=== PATIENT | male | born 1945 | race Caucasian/White ===

== ENCOUNTER 2023-05-28 11:18 | Emergency (ER) | payer OTHER ==
--- OUTSIDE RECORDS SUMMARY | 2023-05-28 11:22 | XMS REPORT | Continuity of Care Document ---
:1945 Author Organization [facility] t Address [address] [place] [address] [place] [id number] Care Team Providers Name Role Phone SHERYL IVTE TAYLOR Primary Care Physician Unavailable Pob, Adc Lab Main Attending Clinician Unavailable Susi Chávez MD Attending Clinician SUSI CHÁVEZ Attending Clinician Unavailable Doctor Unassigned, [place] Attending Clinician Unavailable BRAULIO CIFUENTES Attending Clinician Unavailable Braulio Cifuentes MD Attending Clinician Van_T Attending Clinician Unavailable Frandy Cunningham Attending Clinician [phone] Van_T Admitting Clinician Unavailable Payers Payer Name Policy Type Policy Number Effective Date Expiration Date S [facility] [id number] (MEDICARE REPLACEMENT/ADVANTAGE - PPO) Problems Condition Condition Condition Status Onset Resolution Last Treating Co mments Source Name Details Category Date Date Treatment Clinician Date No known No known Disease Unive rs active active ity of problems problems [facility] Allergies, Adverse Reactions, Alerts Allergy Allergy Status Severity Reaction(s) Onset Inactive Treating Comm ents Source Name Type Date Date Clinician No Known DA Active [facility] Allergie 04-27 [place] s 00:00: [facility] NO KNOWN Drug Active Univers ALLERGIE Class ity of S [place] [facility] [place] Social History Social Habit Start Date Stop Date Quantity Comments Source Exposure to Not sure [facility] SARS-CoV-2 (event) Medica l Branch Alcohol intake 2015-08-27 2015-08-27 0 /d [facility] 00:00:00 00:00:00 Medical Branch [facility] At [birth year] [facility] [place] [facility] 00:00:00 Medical Branch Smoking Status Start Date Stop Date Source Never Smoker [place] [facility] Ordered Filled Start Stop Current Ordering Indication Dosage Frequency Signature Comments Components Source Medication Medication Date Date Medication? Clinician (SIG) Name Name triamcinolo 2021- No [id number] 40mg [facility] 12-12 9102 ity of acetonide 16:45: 15:35 [place] (KENALOG) 00 :00 Medical injection Branch 40 mg triamcinolo 2021- No [id number] 40mg 40 mg, [facility] 12-12 9102 Intramuscu ity of acetonide 16:45: 15:35 [place], ONCE, [place] (KENALOG) 00 :00 1 dose, On Medi festus injection 12/12/21 Bran ch 40 mg at 1145, Routine ZOLPIDEM 2014-09 Yes 10mg Take 10 mg Uni vers TARTRATE 2-14 by mouth ity of (ZOLPIDEM 21:53: [place] needed. [place] [address] [place] [address] traZODONE 2014-09 Yes 50mg Take 50 mg Un dima (DESYREL) 2-14 by mouth. ity o f 50 mg 21:53: [place] tablet [address] [place] [address] Branch butalbital- 2014-09 Yes 1{capsu Take 1 Cap Univers aspirin-caf 2-14 le} by mouth. ity of feine 21:53: Indication [place] (FIORINAL) s: pt Medical 50-325-40 stated Branch mg per that he capsule alternates this med and fioricet butalbital- 2014-09 Yes 1{tbl} Take 1 Tab Univers acetaminoph 2-14 by mouth. ity of en-caff 21:53: [place] (FIORICET) Medical 50-325-40 Branch mg tablet ZOLPIDEM 2014-09 Yes 10mg Take 10 mg Uni vers TARTRATE 2-14 by mouth ity of (ZOLPIDEM 21:53: [place]. [place] [address] [place] [address] traZODONE 2014-09 Yes 50mg Take 50 mg Un dima (DESYREL) 2-14 by mouth. ity o f 50 mg 21:53: [place] tablet 08 [facility] butalbital- 2014-09 Yes 1{capsu Take 1 Cap Univers aspirin-caf 2-14 le} by mouth. ity of feine 21:53: Indication [place] (FIORINAL) 08 s: pt Medical 50-325-40 stated Branch mg per that he capsule alternates this med and fioricet butalbital- 2014-09 Yes 1{tbl} Take 1 Tab Univers acetaminoph 2-14 by mouth. ity of en-caff 21:53: [place] (FIORICET) [address] [place] [address] 50-325-40 Branch mg tablet ZOLPIDEM 2014-09 Yes 10mg Take 10 mg Uni vers TARTRATE 2-14 by mouth ity of (ZOLPIDEM 21:53: [place]. [place] [address] [place] [address] traZODONE 2014-09 Yes 50mg Take 50 mg Un dima (DESYREL) 2-14 by mouth. ity o f 50 mg 21:53: [place] tablet [address] [place] [address] butalbital- 2014-09 Yes 1{capsu Take 1 Cap Univers aspirin-caf 2-14 le} by mouth. ity of feine 21:53: Indication [place] (FIORINAL) 08 s: pt Medical 50-325-40 stated Branch mg per that he capsule alternates this med and fioricet butalbital- 2014-09 Yes 1{tbl} Take 1 Tab Univers acetaminoph 2-14 by mouth. ity of en-caff 21:53: [place] (FIORICET) Medical 50-325-40 Branch mg tablet TAMSULOSIN 2014-09 Yes .4mg Take 0.4 Uni vers HCL 2-14 mg by ity of (TAMSULOSIN 21:53: [place] [address] [place] [address] liothyronin 2014-09 Yes 5ug Take 5 mcg Univers e (CYTOMEL) 2-14 by mouth ity of 5 mcg 21:53: daily. [place] tablet [address] [place] [address] Levothyroxi 2014-09 Yes Take by Uni vers ne 2-14 mouth. ity of (TIROSINT) 21:53: [address] atenolol 2014-09 Yes 25mg Take 25 mg Uni vers (TENORMIN) 2-14 by mouth ity o f 25 mg 21:53: daily. [address] venlafaxine 2014-09 Yes 150mg Take 150 U nivers XR (EFFEXOR 2-14 mg by ity of XR) 150 mg 21:53: mouth [place] 24 hr 07 daily with Medical capsule breakfast. Branch TAMSULOSIN 2014-09 Yes .4mg Take 0.4 Uni vers HCL 2-14 mg by ity of (TAMSULOSIN 21:53: [place]. [place] [address] [place] [address] liothyronin 2014-09 Yes 5ug Take 5 mcg Univers e (CYTOMEL) 2-14 by mouth ity of 5 mcg 21:53: daily. [address] Levothyroxi 2014-09 Yes Take by Uni vers ne 2-14 mouth. ity of (TIROSINT) 21:53: [address] atenolol 2014-09 Yes 25mg Take 25 mg Uni vers (TENORMIN) 2-14 by mouth ity o f 25 mg 21:53: daily. [address] venlafaxine 2014-09 Yes 150mg Take 150 U nivers XR (EFFEXOR 2-14 mg by ity of XR) 150 mg 21:53: mouth [place] 24 hr 07 daily with Medical capsule breakfast. Branch TAMSULOSIN 2014-09 Yes .4mg Take 0.4 Uni vers HCL 2-14 mg by ity of (TAMSULOSIN 21:53: [place]. [place] [address] [place] [address] liothyronin 2014-09 Yes 5ug Take 5 mcg Univers e (CYTOMEL) 2-14 by mouth ity of 5 mcg 21:53: daily. [address] Levothyroxi 2014-09 Yes Take by Uni vers ne 2-14 mouth. ity of (TIROSINT) 21:53: [address] atenolol 2014-09 Yes 25mg Take 25 mg Uni vers (TENORMIN) 2-14 by mouth ity o f 25 mg 21:53: daily. [address] venlafaxine 2015-1 Yes 150mg Take 150 U nivers XR (EFFEXOR 2-14 mg by ity of XR) 150 mg 21:53: mouth [place] 24 hr 07 daily with Medical capsule breakfast. Branch traMADOL 2014-09 Yes 50mg Take 1 Tab Uni vers (ULTRAM) 50 2-14 by mouth ity of mg tablet 00:00: every 6 [place] 00 (six) Medical hours as Branch needed for Pain (scale 1-3). acetaminoph 2014-09 Yes 1{tbl} Take 1 Tab Univers en-codeine 2-14 by mouth ity o f (TYLENOL 00:00: every 4 [place] #3) 300-30 00 (four) Medical mg tablet hours as Branch needed for Pain (scale 1-3). traMADOL 2014-09 Yes 50mg Take 1 Tab Uni vers (ULTRAM) 50 2-14 by mouth ity of mg tablet 00:00: every 6 [place] 00 (six) Medical hours as Branch needed for Pain (scale 1-3). acetaminoph 2014-09 Yes 1{tbl} Take 1 Tab Univers en-codeine 2-14 by mouth ity o f (TYLENOL 00:00: every 4 [place] #3) 300-30 00 (four) Medical mg tablet hours as Branch needed for Pain (scale 1-3). traMADOL 2014-09 Yes 50mg Take 1 Tab Uni vers (ULTRAM) 50 2-14 by mouth ity of mg tablet 00:00: every 6 [place] 00 (six) Medical hours as Branch needed for Pain (scale 1-3). acetaminoph 2014-09 Yes 1{tbl} Take 1 Tab Univers en-codeine 2-14 by mouth ity o f (TYLENOL 00:00: every 4 [place] #3) 300-30 00 (four) Medical mg tablet hours as Branch needed for Pain (scale 1-3). doxycycline 2014- Yes 100mg Take 1 Cap Univers (VIBRAMYCIN 9-29 by mouth 2 it y of ) 100 mg 00:00: (two) [place] capsule 00 times Medical daily. Branch doxycycline 2015-0 Yes 100mg Take 1 Cap Univers (VIBRAMYCIN 9-29 by mouth 2 it y of ) 100 mg 00:00: (two) [place] capsule 00 times Medical daily. Branch doxycycline 2014-0 Yes 100mg Take 1 Cap Univers (VIBRAMYCIN 9-29 by mouth 2 it y of ) 100 mg 00:00: (two) [place] capsule 00 times Medical daily. Branch zolpidem ER zolpidem ER No zolpidem [place] 12.5 mg 12.5 mg ER 12.5 mg Met ro tablet,exte tablet,exte tablet,ext Urology nded nded ended release,mul release,mul release,mu tiphase tiphase ltiphase amitriptyli amitriptyli No amitriptyl [place] ne 10 mg ne 10 mg ine 10 mg Me tro tablet tablet tablet Urology atenolol 50 atenolol 50 No atenolol [place] mg tablet mg tablet 50 mg Metr o tablet Urology butalbital- butalbital- No butalbital [place] acetaminoph acetaminoph -acetamino [place] en-caffeine en-caffeine phen-caffe Urology 50 mg-325 50 mg-325 ine 50 mg-40 mg mg-40 mg mg-325 tablet tablet mg-40 mg tablet butalbital- [facility]albital- [facility] [place] aspirin-caf aspirin-caf -aspirin-c [facility] feine 50 feine 50 affeine 50 U rology mg-325 mg-325 mg-325 mg-40 mg mg-40 mg mg-40 mg capsule capsule capsule cephalexin cephalexin No cephalexin [place] 500 mg 500 mg 500 mg [facility] capsule capsule capsule Urolog y Take 1 Take 1 Take 1 capsule capsule capsule every 8 every 8 every 8 hours by hours by hours by oral route oral route oral route for 1 day. for 1 day. for 1 day. ciprofloxac ciprofloxac No ciprofloxa [place] in 500 mg in 500 mg shanelle 500 mg [facility] tablet Take tablet Take tablet Urology 1 tablet 1 tablet Take 1 twice a day twice a day tablet by oral by oral twice a route for 5 route for 5 day by days. days. oral route for 5 days. fentanyl 75 fentanyl 75 No fentanyl [place] mcg/hr mcg/hr 75 mcg/hr [place] transdermal transdermal transderma Urology patch patch l patch levofloxaci levofloxaci No levofloxac [place] n 750 mg n 750 mg in 750 mg Me tro tablet tablet tablet Urology levothyroxi levothyroxi No levothyrox [place] ne 112 mcg ne 112 mcg ine 112 [facility] tablet tablet mcg tablet Urolo gy liothyronin liothyronin No liothyroni [place] e 5 mcg e 5 mcg ne 5 mcg [facility] tablet tablet tablet Urology losartan losartan No losartan Fredy ston 100 mg 100 mg 100 mg [facility] tablet tablet tablet Urology losartan 50 losartan 50 No losartan [place] mg tablet mg tablet 50 mg Metr o tablet Urology mirtazapine mirtazapine No mirtazapin [place] 7.5 mg 7.5 mg e 7.5 mg Metro tablet tablet tablet Urology Suprep Suprep No Suprep [place] Bowel Prep Bowel Prep Bowel Prep [facility] Kit 17.5 Kit 17.5 Kit 17.5 Uro logy gram-3.13 gram-3.13 gram-3.13 gram-1.6 gram-1.6 gram-1.6 gram oral gram oral gram oral solution solution solution tizanidine tizanidine No tizanidine [place] 4 mg tablet 4 mg tablet 4 mg M etro tablet Urology venlafaxine venlafaxine No venlafaxin [place] ER 225 mg ER 225 mg e ER 225 M etro tablet,exte tablet,exte mg U rology nded nded tablet,ext release 24 release 24 ended hr hr release 24 hr zolpidem ER zolpidem ER No zolpidem [place] 12.5 mg 12.5 mg ER 12.5 mg Met ro tablet,exte tablet,exte tablet,ext Urology nded nded ended release,mul release,mul release,mu tiphase tiphase ltiphase amitriptyli amitriptyli No amitriptyl [place] ne 10 mg ne 10 mg ine 10 mg Me tro tablet tablet tablet Urology atenolol 50 atenolol 50 No atenolol [place] mg tablet mg tablet 50 mg Metr o tablet Urology butalbital- butalbital- No butalbital [place] acetaminoph acetaminoph -acetamino [place] en-caffeine en-caffeine phen-caffe Urology 50 mg-325 50 mg-325 ine 50 mg-40 mg mg-40 mg mg-325 tablet tablet mg-40 mg tablet butalbital- butalbital- No butalbital [place] aspirin-caf aspirin-caf -aspirin-c [facility] feine 50 feine 50 affeine 50 U rology mg-325 mg-325 mg-325 mg-40 mg mg-40 mg mg-40 mg capsule capsule capsule cephalexin cephalexin No 1capsul Q8H cephalexin [place] 500 mg 500 mg e(s) 500 mg [facility] capsule capsule capsule Urolog y Take 1 Take 1 Take 1 capsule capsule capsule every 8 every 8 every 8 hours by hours by hours by oral route oral route oral route for 1 day. for 1 day. for 1 day. Cipro 500 Cipro 500 No 1 BID Cipro 500 [place] mg tablet mg tablet mg tablet [facility] Take 1 Take 1 Take 1 Urology tablet tablet tablet twice a day twice a day twice a by oral by oral day by route for 5 route for 5 oral route days. days. for 5 days. fentanyl 75 fentanyl 75 No fentanyl [place] mcg/hr mcg/hr 75 mcg/hr [place] transdermal transdermal transderma Urology patch patch l patch levofloxaci levofloxaci No levofloxac [place] n 750 mg n 750 mg in 750 mg Me tro tablet tablet tablet Urology levothyroxi levothyroxi No levothyrox [place] ne 112 mcg ne 112 mcg ine 112 [facility] tablet tablet mcg tablet Urolo gy liothyronin liothyronin No liothyroni [place] e 5 mcg e 5 mcg ne 5 mcg [facility] tablet tablet tablet Urology losartan losartan No losartan Freyd ston 100 mg 100 mg 100 mg [facility] tablet tablet tablet Urology losartan 50 losartan 50 No losartan [place] mg tablet mg tablet 50 mg Metr o tablet Urology mirtazapine mirtazapine No mirtazapin [place] 7.5 mg 7.5 mg e 7.5 mg [facility] tablet tablet tablet Urology Suprep Suprep No Suprep [place] Bowel Prep Bowel Prep Bowel Prep [place] Kit 17.5 Kit 17.5 Kit 17.5 Uro logy gram-3.13 gram-3.13 gram-3.13 gram-1.6 gram-1.6 gram-1.6 gram oral gram oral gram oral solution solution solution tizanidine tizanidine No tizanidine [place] 4 mg tablet 4 mg tablet 4 mg M etro tablet Urology venlafaxine venlafaxine No venlafaxin [place] ER 225 mg ER 225 mg e ER 225 M etro tablet,exte tablet,exte mg U rology nded nded tablet,ext release 24 release 24 ended hr hr release 24 hr Vital Signs Vital Name Observation Time Observation Value Comments Source Systolic blood 2021-12-12 15:08:00 92 mm[Hg] Univer sity [facility] pressure [facility] Diastolic blood 2021-12-12 15:08:00 58 mm[Hg] [facility] Heart rate 2021-12-12 15:08:00 72 /min [facility] Body height 2021-12-12 15:08:00 177.8 cm [facility] Body weight 2021-12-12 15:08:00 68.493 kg [facility] BMI 2021-12-12 15:08:00 21.67 kg/m2 [facility] Oxygen saturation 2021-12-12 15:08:00 100 /min [facility] in Arterial blood [facility] Br anch by Pulse oximetry Height 2021-11-17 00:00:00 69 [in_i] [place] [facility] BP Diastolic 2021-10-30 00:00:00 75 mm[Hg] [facility] Height 2021-10-30 00:00:00 69 [in_i] [facility] BMI (Body Mass 2021-10-30 00:00:00 22.2 kg/m2 [place] [facility] Index) Urology BP Systolic 2021-10-30 00:00:00 111 mm[Hg] [facility] Body Weight 2021-10-30 00:00:00 150 [lb_av] [facility] Procedures Procedure Date / Time Performed Performing Clinician Sour e ASSIGNMENT OF BENEFITS 2022-08-04 20:53:57 Doctor Unassigned, No [facility] Encounters Start End Encounter Admission Attending Care Care Encounter Source Date/Time Date/Time Type Type Clinicians Facility Department ID 2022-08-04 2022-08-04 Literacy Specialist Eloisa Powell Lab Main [facility] 1.2.8 [id number] [facility] 15:15:00 15:30:00 Visit Susi Chávez 350.1.13.10 Noemi 4.2.7.2.686 Jose ARAUJO [id number] Hi dical [address] BUILDING 2022-08-04 2022-08-04 Outpatient R KYLER [facility] [id number] Univers 15:15:00 15:15:00 SUSI itishan [facility] 2022-08-04 2022-08-04 Orders Doctor JACKSON [id number] Univers 00:00:00 00:00:00 Only Unassigned, LEONARDA 350.1.13.10 ity of [place] [facility] 4.2.7.2.686 Luís as [id number] [address] 2021-12-12 2021-12-12 Outpatient Miriam CIFUENTES [facility] [id number] Univers 09:45:00 10:46:23 BRAULIO angelicaishan [facility] 2021-12-12 2021-12-12 Office Lex [facility] [id number] Univers 09:45:00 10:46:23 Visit [facility] 350.1.13.10 it y of [place] 4.2.7.2.686 Luís as KIM?BLEA [id number] [address] MEDICAL OFFICE [facility] 2021-12-12 2021-12-12 Orders Doctor JACKSON [id number] Univers 00:00:00 00:00:00 Only Unassigned, LEONARDA 350.1.13.10 ity of [place] [facility] 4.2.7.2.686 Luís as [id number] [address] 2021-11-24 2021-11-24 [address] Van_T [facility] [id number] [place] 08:54:00 08:54:00 [id number] [facility] 2021-11-19 2021-11-19 Outpatient Van_T U [facility] [id number] [place] 10:22:00 10:22:00 [id number] [facility] 2021-11-17 2021-11-17 Outpatient Van_T [facility] [id number] [place] 01:40:00 01:40:00 [id number] [facility] 2021-11-17 2021-11-[address] [facility] [id number] 00:00:00 00:00:00 Jackson Fitzpatrick [id number] 2021-11-17 2021-11-17 Frandy Sepulveda [facility] [place] - [id number] [place] 00:00:00 00:00:00 Amari Cunningham MD: [place] [facility] [address] [facility] [place], Urology JEWEL [place], - [facility] [address] , Ph. 2021-11-13 2021-11-13 Outpatient Van_T [facility] [id number] [place] 09:28:00 09:28:00 [facility] 2021-11-12 2021-11-12 Outpatient Van_T [facility] [id number] [place] 12:09:00 12:09:00 [facility] 2021-11-05 2021-11-05 Outpatient Van_T [facility] [id number] [place] 09:57:00 09:57:00 [facility] 2021-11-04 2021-11-04 Outpatient Van_T [facility] [id number] [place] 02:33:00 02:33:00 [facility] 2021-10-30 2021-10-30 Outpatient Van_T [facility] [id number] [place] 02:18:00 02:18:00 [facility] 2021-10-30 2021-10-[address] [facility] [id number] 00:00:00 00:00:00 Jackson Fitzpatrick [id number] 2021-10-30 2021-10-30 Frandy Sepulveda [facility] [place] - [id number] [address] [place] [id number] 00:00:00 00:00:00 Amari Cunningham MD: [facility] [address] [facility] [facility] JEWEL [place]ch, [place] [address] , Ph. 2021-09-25 2021-09-25 Outpatient Van_T [facility] [id number]- [place] 04:39:00 04:39:00 [facility] Results Test Description Test Time Test Comments Results Result Sour e Comments - CT C-SPINE W/O 2019-03-16 Patient Name: CONT 08:17:00 BRIDGERROGER Unit No: [id number] EXAMS: CPT CODE: [id number] CT C-SPINE W/O CONT 14207 DIAGNOSIS: 1. At C1-2 there is no evidence for subluxation or canal stenosis. There is degenerative narrowing of the anterior articulation with sclerosis and osteophyte formation. 2. At C2-3 there is endplate spur formation lateralizing left posterior lateral and foraminal with moderate to marked left foraminal narrowing without right-sided stenosis. Associated disc bulging is present. Facet degeneration is seen. No canal stenosis is identified. 3. 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 No canal stenosis is seen. 4. At C4-5 there is endplate spur formation with marked bilateral foraminal narrowing. Associated disc bulging is seen. The canal is stenotic with an AP diameter of 9 mm. Bilateral facet degeneration is present. 5. At C5-6 there is a mild retrolisthesis with endplate spur formation and associated disc bulging. Mild bilateral foraminal narrowing is present in the canal is stenotic with an AP diameter of 10 mm. 6. At C6-7 the patient is status post anterior discectomy and graft with anterior and interfacet solid fusion. Moderate to marked bilateral foraminal narrowing is present. No canal stenosis is seen. 7. At C7-T1 there is mild endplate spur formation and disc bulging with mild/moderate right foraminal narrowing and moderate left-sided stenosis. There is no evidence for canal stenosis. COMMENT: COMPARISON: No prior exams available. Scans were performed from C1 to T1 without contrast and reconstructions were obtained. Postsurgical and spondylitic changes are as noted. Discs are as described. at 0817 Reported and signed by: Rob Negron MD CC: Rob Flores M.D. Technologist: RT Marissa(R) CTDI: DLP: Trnscrpt: 03/16/2019 (0817) Hal [facility] NAME: ROGER SPARKS [address] [facility] PHYS: Rob Ayoub MD : 1945 AGE: 73 SEX: M [place], [place] [address] LOC: [place] PHONE #: [phone] EXAM DATE: 03/15/2019 STATUS: DEP CLI FAX #: [phone] RAD #: D/C DT PAGE 1 Signed Report Patient Name: ROGER SPARKS Unit No: [id number] EXAMS: CPT CODE: [id number] CT C-SPINE W/O CONT 99620 (Continued) Orig Print D/T: S: 03/16/2019 (0820) [facility] NAME: ROGER SPARKS [id number] [facility] PHYS: Rob Ayoub MD : 1945 AGE: 73 SEX: M [place], [place] [address] LOC: [place] PHONE #: [phone] EXAM DATE: 03/15/2019 STATUS: CATRACHITO CLI FAX #: [phone] RAD #: D/C DT PAGE 2 Signed Report
[2023-05-28 11:52] LABS: Absolute Lymphocytes (CBC) 1.3 K/uL (0.7-4.9); Hematocrit 35.6 % (39.6-49.0); MCV 94.6 fL (80-100); MPV 6.6 fL (7.6-11.3); Platelets 207 thou/uL (152-406); RBC Red Blood Cell Count 3.76 M/uL (4.33-5.43)
[2023-05-28 12:09] LABS: Potassium 4.1 mEq/L (3.5-5.1)
[2023-05-28 12:16] LABS: Specific Gravity 1.028 (1.005-1.030); Urine Bacteria None Seen /HPF (<20); Urine Bilirubin NEGATIVE (Negative); Urine Blood Trace (Negative); Urine Clarity Clear (Clear); Urine Color Yellow (Yellow); Urine Glucose NEGATIVE (Negative); Urine Protein TRACE (Negative); Urine RBC <5 /HPF (None Seen); Urine Urobilinogen Normal (Normal); Urine pH 5.5 (5.0-7.0)
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
[2023-05-28 13:55] VITALS: TEMP 98.1
[2023-05-28 13:56] VITALS: BP 108/83; O2SAT 100
== END 2023-05-28 13:50 | disposition home or self-care (01) ==
LOC: ER 11:18
DX: R29.91 Unspecified symptoms and signs involving the musculoskeletal system (principal); V49.40XA Driver injured in collision with unspecified motor vehicles in traffic accident, initial encounter
CPT/HCPCS: 36415; 70450; 71250; 72125; 80048; 81001; 85025; 86850; 86900; 86901; 99284